=== PATIENT | female | born 1940 | race Caucasian/White ===

== ENCOUNTER 2017-12-06 06:29 | Day surgery (SDC) | payer MEDICARE, BC ==
[2017-12-06] MEDS ORDERED: Lactated Ringers 1,000 ML IV SCH (07:00)
[2017-12-06] MEDS ORDERED: Midazolam 1 MG/ML 2 ML SDV ONE (07:16)
[2017-12-06] MEDS ORDERED: Propofol 200 MG/20 ML SDV ONE (07:16)
[2017-12-06] MEDS ORDERED: fentaNYL 100 MCG/2 ML SDV ONE (07:16)
[2017-12-06 09:04] VITALS: BP 133/83
--- NOTE | 2017-12-06 13:02 | OR ---
DATE OF PROCEDURE: 12/06/2017 PREOPERATIVE DIAGNOSIS: Dysphagia and nausea after eating. POSTOPERATIVE DIAGNOSES: Gastritis, reflux esophagitis, gastroesophageal reflux disease, dysphagia, and nausea after eating. PROCEDURE: Esophagogastroduodenoscopy with antral biopsies for CLOtest, sent for pathology to look for Helicobacter pylori, biopsy of gastroesophageal junction. SURGEON: Osito Cortes MD ANESTHESIA: IV anesthesia with monitored anesthesia care. INDICATION: This 77-year-old white female is referred for upper endoscopy, she says, because of nausea after eating. The request is made because of dysphagia. Prior abdominal surgery consists of a cholecystectomy. I counseled her for upper endoscopy with possible biopsy, including risks and alternatives, and she gave her informed consent to proceed. DESCRIPTION OF PROCEDURE: The patient was placed in the left lateral decubitus position. IV anesthesia was administered by the Anesthesia Service. Time-out was held. The flexible video Olympus upper endoscope was passed through her mouth, down her esophagus, and into her stomach. The scope was easily passed through the pylorus into the duodenum, reaching its third portion. The scope was then slowly withdrawn, examining the mucosa throughout. The duodenal mucosa appeared unremarkable. The scope was brought up through the pylorus. The antrum had red streaking emanating from the pylorus, consistent with gastritis. The red streaking went up well into the stomach. The scope was retroflexed, and the most proximal stomach appeared unremarkable. Possibly some changes at the GE junction. The scope was straightened. We obtained antral biopsies for CLOtest, sent for pathology to look for Helicobacter pylori. The scope was then brought up through the GE junction. There were changes with gastric mucosa going proximally up into the esophagus. We obtained multiple, greater than six biopsies of the gastroesophageal junction. The scope was then brought proximally up through remainder of the esophagus, which otherwise appeared unremarkable and it was removed. She tolerated the procedure well. Osito Cortes MD /[id number]
== END 2017-12-06 09:00 | disposition home or self-care (01) ==
LOC: JP.SDS 06:29
PROVIDERS: ATTEND Surgery
DX: R13.10 Dysphagia, unspecified (principal); R11.0 Nausea; I10 Essential (primary) hypertension; K21.9 Gastro-esophageal reflux disease without esophagitis; E78.5 Hyperlipidemia, unspecified; E11.9 Type 2 diabetes mellitus without complications; E66.9 Obesity, unspecified; Z88.8 Allergy status to other drugs, medicaments and biological substances; Z90.49 Acquired absence of other specified parts of digestive tract
CPT/HCPCS: 87081; 88305; J2250; J2704; J3010; J7120

== ENCOUNTER 2019-03-10 06:01 | Day surgery (SDC) | payer MEDICARE, BC ==
[2019-03-10] MEDS ORDERED: ceFAZolin 2 GM in Premix Bag 1 BAG IV ONE (06:30)
[2019-03-10] MEDS ORDERED: Dextrose 5%-Lactated Ringers 1,000 ML IV SCH (06:30)
[2019-03-10] MEDS ORDERED: Midazolam 1 MG/ML 2 ML SDV ONE (07:03)
[2019-03-10] MEDS ORDERED: Propofol 200 MG/20 ML SDV ONE (07:03)
[2019-03-10] MEDS ORDERED: Lidocaine 0.5% 50 ML SDV ONE (07:03)
[2019-03-10] MEDS ORDERED: fentaNYL 100 MCG/2 ML SDV ONE (07:03)
[2019-03-10] MEDS ORDERED: Lidocaine 1% with EPINEPHrine 1:100,000 50 ML MDV ONE (07:04)
[2019-03-10] MEDS ORDERED: Mupirocin Oint 22 GM Tube TOP ONE (08:15)
[2019-03-10 09:41] VITALS: BP 120/64
--- NOTE | 2019-03-12 09:40 | OR ---
DATE OF PROCEDURE: 03/10/2019 PREOPERATIVE DIAGNOSIS: Right ring finger trigger digit. POSTOPERATIVE DIAGNOSIS: Right ring finger trigger digit. PROCEDURE PERFORMED: Release of right ring finger trigger digit (15091). ANESTHESIA: IV block plus sedation. INDICATION FOR PROCEDURE: A 78-year-old presenting with apparently increasing problematic trigger digit following the right ring finger. After preoperative evaluation and discussion, she wished to proceed with release. Potential risks including bleeding, infection, injury to the tendon and nerves area, possible incomplete relief of symptoms were all reviewed, and the patient wishes to proceed. PROCEDURE IN DETAIL: The patient was taken to the operating room. After IV sedation was administered, an IV block was placed affecting the right forearm and hand and those areas were prepped and draped. Over the palmar aspect of the distal metacarpal bone associated with a right ring finger, transverse incision was made and carried down through the skin and subcutaneous tissue. Soft tissue was retracted laterally and medially over the tendon sheath, which was initially incised and then the superficial 1/3rd of the tendon sheath then excised roughly 1.5 cm in each direction from the center of the involved susanna. Once this was accomplished, the finger range of motion appeared to be unimpeded. The subcutaneous tissue was then approximated with some 4-0 Vicryl stitch and the skin with a 5-0 Prolene stitch. Dressing was applied. The patient was taken to the recovery room in satisfactory condition. Alok Gómez MD /[id number]
== END 2019-03-10 09:40 | disposition home or self-care (01) ==
LOC: JP.SDS 06:01
PROVIDERS: ATTEND Surgery
DX: M65.341 Trigger finger, right ring finger (principal); Z88.8 Allergy status to other drugs, medicaments and biological substances; Z88.5 Allergy status to narcotic agent
CPT/HCPCS: 26055; A9270; J0690; J2001; J2250; J2704; J3010; J7042